=== PATIENT | female | born 1955 | race Caucasian/White ===

== ENCOUNTER → 2016-09-25 | Outpatient (CLI) | payer OTHER ==
[~2016-09-25] MED LIST: AGG PO; ALPR-411 PO; CALC1TAB9 PO; CHOL1TAB42 PO; CYM60 PO; DOXY100C2 PO; FLUO40CA8 PO; GABA-113 PO; HYDR-4330 PO; HYDR-5688 PO; IPRA0.03 INH; LAMO100T16 PO; OMEP40CA PO; PRED10TA PO; PROP80TA2 PO; VNTHFA/IN INH; VTMD PO
== END | disposition home or self-care (01) ==
LOC: C.LAB1850 09:34
PROVIDERS: ATTEND Internal Medicine Rheumatology
DX: E55.9 Vitamin D deficiency, unspecified (principal); M81.0 Age-related osteoporosis without current pathological fracture

== ENCOUNTER → 2016-10-03 | Outpatient (CLI) | payer OTHER ==
[2016-10-03 09:47] LABS: BASO % 0.7 %; BASO ABS # 0.03 K/uL (0-0.2); COMPLETE YES; EOS % 0.2 %; HEMATOCRIT 40.9 % (37-47); LYMPH % 26.2 %; LYMPH ABS # 1.05 K/uL (1.2-3.4); MEAN CELL VOLUME 79.3 fL (80-100); MEAN CORPUSCULAR HGB CONC 32.8 g/dl (32-36); MEAN PLATELET VOLUME 10.1 fL (7.4-10.4); MONO % 9.5 %; NEUT % 63.4 %; PLATELET COUNT 221 K/uL (130-400); RED BLOOD COUNT 5.16 M/uL (4.2-5.4); WHITE BLOOD COUNT 4.01 K/uL (4.8-10.8)
[2016-10-03 10:14] LABS: ESTIMATED AVERAGE GLUCOSE 117 mg/dl; HA1C FLAG Normal (Normal)
[2016-10-03 10:54] LABS: ALT/SGPT 17 U/L (12-78); BLOOD UREA NITROGEN 9 mg/dl (7-18); BUN/CREATININE RATIO 11.2 (10-20); CALCIUM 8.9 mg/dl (8.5-10.1); CARBON DIOXIDE 24 mmol/L (21-32); CHLORIDE 107 mmol/L (98-107); CHOLESTEROL 193 mg/dl (0-200); CREATININE 0.81 mg/dl (0.60-1.20); GLUCOSE 87 mg/dl (70-99); POTASSIUM 4.1 mmol/L (3.5-5.1); SODIUM 142 mmol/L (136-145)
[2016-10-03 10:57] LABS: ALB/GLOB RATIO 1.2 (0.9-2); ALKALINE PHOSPHATASE 94 U/L (45-117); AST/SGOT 19 U/L (15-37); CHOLESTEROL/HDL RATIO 3.9; HDL CHOLESTEROL 49 mg/dl; LDL CHOLESTEROL CALCULATED 123 mg/dl; TRIGLYCERIDES 106 mg/dl (0-150); VERY LOW DENSITY LIPOPROT CALC 21 mg/dl
[2016-10-05 02:13] LABS: VARICELLA ZOS VIR IGG VALUE 1.33 INDEX
== END | disposition home or self-care (01) ==
LOC: C.LAB 08:30
PROVIDERS: ATTEND Nurse Practitioner Family
DX: E78.00 Pure hypercholesterolemia, unspecified (principal); R73.9 Hyperglycemia, unspecified; Z78.9 Other specified health status

== ENCOUNTER → 2016-10-09 | Outpatient (CLI) | payer OTHER ==
--- NOTE | 2016-10-09 15:37 | MAMMOGRAPHY REPORT ---
BILATERAL DIGITAL SCREENING MAMMOGRAM TOMOSYNTHESIS WITH CAD: 10/09/2016 CLINICAL HISTORY: Routine screening. Patient has no complaints. TECHNIQUE: Breast tomosynthesis in addition to standard 2D mammography was performed. Current study was also evaluated with a Computer Aided Detection (CAD) system. COMPARISON: Comparison is made to exams dated: 08/11/2015 mammogram, 07/08/2014 mammogram, 01/12/2013 mammogram, 01/11/2012 mammogram, 01/08/2011 mammogram, and 01/06/2010 mammogram - [facility] enter. BREAST COMPOSITION: The tissue of both breasts is almost entirely fatty. FINDINGS: The parenchymal pattern is unchanged. No developing mass, architectural distortion or clu ster of suspicious microcalcifications is seen. IMPRESSION: ACR BI-RADS CATEGORY 2: BENIGN There is no mammographic evidence of malignancy. A 1 year screening mammogram is recommended. The p atient will receive written notification of the results. Approximately 10% of breast cancers are not detected with mammography. A negative mammographic repor t should not delay biopsy if a clinically suggestive mass is present. Araceli Eng M.D. ay/:10/09/2016 14:44:24 [employer]: Mag Antoine, [facility] letter sent: Normal 1/2 BI-RADS Code: ACR BI-RADS Category 2: Benign
== END | disposition home or self-care (01) ==
LOC: C.MAMM 14:09
PROVIDERS: ATTEND Nurse Practitioner Family
DX: Z12.31 Encounter for screening mammogram for malignant neoplasm of breast (principal)

== ENCOUNTER → 2016-10-18 | Day surgery (SDC) | payer OTHER ==
[2016-10-09 07:54] VITALS: BMI 22.0
[~2016-10-18] VITALS: Ht 167.6 cm; Wt 63.6 kg
[~2016-10-18] MED LIST changes: -DOXY100C2 PO; -FLUO40CA8 PO; -HYDR-4330 PO; -LAMO100T16 PO; +LIDOCAINE HCL 2% 2 ML VIAL (20MG/ML) ONE; +MIDAZOLAM HCL 1 MG/ML 2ML VIAL ONE; +ONDANSETRON INJ 2 MG/ML 2 ML VIAL ONE; -PRED10TA PO; -PROP80TA2 PO; +PROPOFOL IV EMULSION 10 MG/ML 20 ML VIAL IV ONE; +SODIUM CHLORIDE 0.9% 500ML 500 ML IV ONE; -VTMD PO
[2016-10-18 13:44] VITALS: Ht 167.6 cm; Wt 63.6 kg
[2016-10-18 14:01] VITALS: TEMP 36.6
--- NOTE | 2016-10-18 15:03 | Endo History and Physical ---
History & Physical Date of Service: Oct 18, 2016. Chief Complaint: SCREENING COLON Referring Physician: MARCO SMITH History of Present Illness 61 yo CF who presents for screening colonoscopy. Past Medical History Asthma, Anxiety, Reflux, Seizure Disorder, High Cholesterol, Heart Disease, Thrombophlebitis, Depression Past Surgical History Hx Cardiac Surgery: No Hx Internal Defibrillator: No Hx Pacemaker: No Hx Abdominal Surgery: Yes (SULY BSO) Hx of Implantable Prosthesis: No Hx Post-Op Nausea and Vomiting: No Hx Cancer Surgery: No Hx Thoracic Surgery: No Hx Orthopedic: Yes (NECK SURGERY FOR PINCHED NERVE WITH PLATE (FULL ROM)) Hx Urinary Tract Surgery: No Family History None Social History Smoking Status: Never Smoker Hx Substance Use: No Hx Alcohol Use: No Allergies Coded Allergies: No Known Allergies (Verified , 10/18/16) Current Medications Reported Home Medications Medications Dose Route/Sig Max Daily Dose Days Date Category Dose Instructions Ventolin Hfa (Albuterol) 200 Puffs/17141 Mcg Aers 2-4 Puffs INH Q6H PRN 10/09/16 Reported Citracal + D3 Maximum (Calcium Citrate-Vitamin D) 1 Tab Tab 1 Tab PO QAM 10/09/16 Reported Vitamin D (Cholecalciferol) 5,000 Unit Tab 1 Tab PO QAM 10/09/16 Reported Ipratropium [place] (Ipratropium [place] (Nasal)) 0.03 % Spr 2 Sprays INH BID PRN 10/09/16 Reported [place] 5MG/325MG (Acetaminophen/Hydrocodone Bitart) Tab 2 Tablets PO Q4H PRN 10/09/16 Reported PRN PAIN Neurontin (Gabapentin) 300 Mg Cap 300 Mg PO TID 10/09/16 Reported Duloxetine HCl 60 Mg Cap 60 Mg PO QAM 08/16/16 Reported Aggrenox 25-200 mg (Dipyridamole/Aspirin) 1 Cap Cap 1 Cap PO QAM 04/04/16 Reported Xanax (Alprazolam) 0.5 Mg Tab 0.5 Mg PO HS PRN 04/04/16 Reported Prilosec (Omeprazole) 40 Mg Capcr 40 Mg PO QAM 10/03/15 Reported Vital Signs Weight (Kilograms): 63.64 Height (Feet): 5 Height (Inches): 6 Date Time Temp Pulse Resp B/P Pulse Ox O2 Delivery O2 Flow Rate FiO2 10/18/16 14:01 36.6 79 16 117/65 97 Room Air Physical Exam General Appearance: WD/WN, no apparent distress Respiratory/Chest: Auscultation: breath sounds normal Cardiovascular: Heart Auscultation: RRR Abdomen: Bowel Sounds: normal Inspection & Palpation: soft, non-distended, no tenderness, guarding & rebound Assessment and Plan Assessment: 61 yo CF who presents for screening colonoscopy. Plan: Proceed with colonoscopy.
--- NOTE | 2016-10-18 15:30 | Discharge Instructions ---
Endoscopy Patient Instructions Date / Procedure(s) Performed Oct 18, 2016. Colonoscopy Allergy Information Coded Allergies: No Known Allergies (Verified , 10/18/16) Discharge Date / Findings Oct 18, 2016. Diverticulosis Internal hemorrhoids Medication Instructions Stopped Medication(s): NOT TOLD TO STOP ANY MEDICATIONS OK to resume all medications today as prescribed Reported Home Medications Medications Dose Route/Sig Max Daily Dose Days Date Category Dose Instructions Ventolin Hfa (Albuterol) 200 Puffs/87398 Mcg Aers 2-4 Puffs INH Q6H PRN 10/09/16 Reported Citracal + D3 Maximum (Calcium Citrate-Vitamin D) 1 Tab Tab 1 Tab PO QAM 10/09/16 Reported Vitamin D (Cholecalciferol) 5,000 Unit Tab 1 Tab PO QAM 10/09/16 Reported Ipratropium [place] (Ipratropium [place] (Nasal)) 0.03 % Spr 2 Sprays INH BID PRN 10/09/16 Reported [place] 5MG/325MG (Acetaminophen/Hydrocodone Bitart) Tab 2 Tablets PO Q4H PRN 10/09/16 Reported PRN PAIN Neurontin (Gabapentin) 300 Mg Cap 300 Mg PO TID 10/09/16 Reported Duloxetine HCl 60 Mg Cap 60 Mg PO QAM 08/16/16 Reported Aggrenox 25-200 mg (Dipyridamole/Aspirin) 1 Cap Cap 1 Cap PO QAM 04/04/16 Reported Xanax (Alprazolam) 0.5 Mg Tab 0.5 Mg PO HS PRN 04/04/16 Reported Prilosec (Omeprazole) 40 Mg Capcr 40 Mg PO QAM 10/03/15 Reported Provider Instructions Activity Restrictions - No exercising or heavy lifting for 24 hours. - Do not drink alcohol the day of the procedure. - Do not drive a car or operate machinery until the day after the procedure. - Do not make any important decisions or sign important papers in 24 hours after the procedure. Following Day: - Return to full activity which may include returning to work/school. Diet Start your diet with liquids and light foods (jello, soup, juice, toast). Then eat your usual diet if not nauseated. Treatment For Common After Affects For mild abdominal pain, bloating, or excessive gas: - Rest - Eat lightly - Lie on right side Follow-Up Information Follow-up with MARCO SMITH as scheduled Anesthesia Information What You Should Know You have had a procedure that required some medicine to reduce anxiety and discomfort. This treatment is called moderate sedation. After receiving the treatment, you may be sleepy, but you will be able to breathe on your own. The effects of the treatment may last for several hours. Follow these instructions along with Activity/Diet recommendations noted above: * Do NOT do anything where dizziness or clumsiness would be dangerous. * Rest quietly at home today, then you can be up and about tomorrow. * Have a responsible person stay with you the rest of today. * You may have had an I.V. today. If so, you may take the dressing off later today. Recommendations Call your doctor if: * Trouble breathing * Continuous vomiting for more than 24 hours * Temperature above 101 degrees * Severe abdominal pain or bloating * Pain not relieved by pain medicine ordered * There is increased drainage or redness from any incision * A large amount of rectal bleeding greater than 2-3 tablespoons. (If you had a polyp/s removed or have hemorrhoids, a small amount of blood - from the rectum is to be expected.) * You have any unanswered questions or concerns. IN THE EVENT OF A SERIOUS EMERGENCY, GO TO THE NEAREST EMERGENCY ROOM Your discharge instructions were prepared by provider Prosper Craig. Patient Instructions Signature Page Fang Alberts Patient (or Guardian) Signature/Date: I have read and understand the instructions given to me by my caregivers. Caregiver/RN/Doctor Signature/Date: The above-named patient and/or guardian has received patient instructions on this date. + Original Patient Signature Page (only) stays with chart. Please make copy for patient.
--- NOTE | 2016-10-18 15:33 | GI REPORT ---
Procedure Date: 10/18/2016 3:06 PM Procedure: Colonoscopy Indications: Screening for colorectal malignant neoplasm Medicines: Monitored Anesthesia Care Complications: No immediate complications. Estimated Blood Loss: Estimated blood loss: none. Procedure: Pre-Anesthesia Assessment: - Prior to the procedure, a History and Physical was performed, and patient medications and allergies were reviewed. The patient's tolerance of previous anesthesia was also reviewed. The risks and benefits of the procedure and the sedation options and risks were discussed with the patient. All questions were answered, and informed consent was obtained. Prior Anticoagulants: The patient has taken no previous anticoagulant or antiplatelet agents. ASA Grade Assessment: II - A patient with mild systemic disease. After reviewing the risks and benefits, the patient was deemed in satisfactory condition to undergo the procedure. After I obtained informed consent, the scope was passed under direct vision. Throughout the procedure, the patient's blood pressure, pulse, and oxygen saturations were monitored continuously. The scope was introduced through the anus and advanced to the terminal ileum. The scope was introduced through the and advanced to. The colonoscopy was performed without difficulty. The patient tolerated the procedure well. The quality of the bowel preparation was good. The terminal ileum, ileocecal valve, appendiceal orifice, and rectum were photographed. Findings: Multiple small-mouthed diverticula were found in the sigmoid colon. Non-bleeding internal hemorrhoids were found during retroflexion. The hemorrhoids were small. Impression: - Diverticulosis in the sigmoid colon. - Non-bleeding internal hemorrhoids. - No specimens collected. Recommendation: - Resume previous diet. - Continue present medications. - Repeat colonoscopy in 5 years for surveillance. - Return to primary care physician as previously scheduled. Prosper Craig, DO 10/18/2016 3:32:54 PM This report has been signed electronically. Note Initiated On: 10/18/2016 3:06 PM I attest to the content of the Intraoperative Record and orders documented therein, exceptions below
--- NOTE | 2016-10-18 15:48 | Anesthesiology Progress Note ---
Anesthesia Post Op Note Date & Time Oct 18, 2016 at 15:48 Vital Signs Pain Intensity: 0 Vital Signs Past 12 Hours Date Time Temp Pulse Resp B/P Pulse Ox O2 Delivery O2 Flow Rate FiO2 10/18/16 15:43 87 18 103/61 96 Room Air 10/18/16 15:29 80 16 102/58 98 Nasal Cannula 2 10/18/16 14:01 36.6 79 16 117/65 97 Room Air Notes Mental Status: alert / awake / arousable, participated in evaluation Pt Amnestic to Procedure: Yes Nausea / Vomiting: adequately controlled Pain: adequately controlled Airway Patency, RR, SpO2: stable & adequate BP & HR: stable & adequate Hydration State: stable & adequate Anesthetic Complications: no major complications apparent
[2016-10-18 15:51] VITALS: BP 107/62; PULSE 80; O2SAT 80
== END | disposition home or self-care (01) ==
LOC: C.GI 13:30
PROVIDERS: ATTEND Internal Medicine
DX: Z12.11 Encounter for screening for malignant neoplasm of colon (principal); K64.8 Other hemorrhoids; J45.909 Unspecified asthma, uncomplicated; K21.9 Gastro-esophageal reflux disease without esophagitis; E78.00 Pure hypercholesterolemia, unspecified; Z90.710 Acquired absence of both cervix and uterus; K57.30 Diverticulosis of large intestine without perforation or abscess without bleeding; G40.909 Epilepsy, unspecified, not intractable, without status epilepticus

== ENCOUNTER → 2017-02-20 | Outpatient (CLI) | payer OTHER ==
[~2017-02-20] MED LIST changes: -LIDOCAINE HCL 2% 2 ML VIAL (20MG/ML) ONE; -MIDAZOLAM HCL 1 MG/ML 2ML VIAL ONE; -ONDANSETRON INJ 2 MG/ML 2 ML VIAL ONE; -PROPOFOL IV EMULSION 10 MG/ML 20 ML VIAL IV ONE; -SODIUM CHLORIDE 0.9% 500ML 500 ML IV ONE
== END | disposition home or self-care (01) ==
LOC: C.PATHSPEC 16:37
PROVIDERS: ATTEND Dermatology
DX: L82.0 Inflamed seborrheic keratosis (principal); L82.1 Other seborrheic keratosis

== ENCOUNTER → 2017-03-18 | Day surgery (SDC) | payer OTHER ==
[~2017-03-18] VITALS: Ht 167.6 cm; Wt 61.8 kg
[~2017-03-18] MED LIST changes: +LIDOCAINE HCL 2% 2 ML VIAL (20MG/ML) ONE; +PROPOFOL IV EMULSION 10 MG/ML 20 ML VIAL IV ONE; +SODIUM CHLORIDE 0.9% 500ML 500 ML IV ONE
[2017-03-18 09:33] VITALS: Ht 167.6 cm; Wt 61.8 kg
[2017-03-18 09:42] VITALS: TEMP 37
--- NOTE | 2017-03-18 10:12 | Endo History and Physical ---
History & Physical Date of Service: Mar 18, 2017. Chief Complaint: dysphagia,cough,reflux Referring Physician: ECHO Hoyt III History of Present Illness 61 yo CF who presents for EGD secondary to dysphagia, cough and GERD. Past Medical History Asthma, Anxiety, Reflux, Seizure Disorder, High Cholesterol, Heart Disease, Thrombophlebitis, Depression Past Surgical History Hx Cardiac Surgery: No Hx Internal Defibrillator: No Hx Pacemaker: No Hx Abdominal Surgery: Yes (SULY BSO) Hx of Implantable Prosthesis: No Hx Post-Op Nausea and Vomiting: No Hx Cancer Surgery: No Hx Thoracic Surgery: No Hx Orthopedic: Yes (NECK SURGERY FOR PINCHED NERVE WITH PLATE (FULL ROM)) Hx Urinary Tract Surgery: No Family History None Social History Smoking Status: Never Smoker Hx Substance Use: Yes (prescribed) Hx Alcohol Use: No Allergies Coded Allergies: No Known Allergies (Verified , 10/18/16) Current Medications Reported Home Medications Medications Dose Route/Sig Max Daily Dose Days Date Category Dose Instructions Ventolin Hfa (Albuterol) 200 Puffs/32327 Mcg Aers 2-4 Puffs INH Q6H PRN 10/09/16 Reported Citracal + D3 Maximum (Calcium Citrate-Vitamin D) 1 Tab Tab 1 Tab PO QAM 10/09/16 Reported Vitamin D (Cholecalciferol) 5,000 Unit Tab 1 Tab PO QAM 10/09/16 Reported Ipratropium [place] (Ipratropium [place] (Nasal)) 0.03 % Spr 2 Sprays INH BID PRN 10/09/16 Reported [place] 5MG/325MG (Acetaminophen/Hydrocodone Bitart) Tab 2 Tablets PO Q4H PRN 10/09/16 Reported PRN PAIN Neurontin (Gabapentin) 300 Mg Cap 300 Mg PO TID 10/09/16 Reported Duloxetine HCl 60 Mg Cap 60 Mg PO QAM 08/16/16 Reported Aggrenox 25-200 mg (Dipyridamole/Aspirin) 1 Cap Cap 1 Cap PO QAM 04/04/16 Reported Prilosec (Omeprazole) 40 Mg Capcr 40 Mg PO BID 10/03/15 Reported Vital Signs Weight (Kilograms): 61.82 Height (Feet): 5 Height (Inches): 6 Date Time Temp Pulse Resp B/P (MAP) Pulse Ox O2 Delivery O2 Flow Rate FiO2 03/18/17 09:42 37 70 20 120/56 (77) 98 Room Air Physical Exam General Appearance: WD/WN, no apparent distress Respiratory/Chest: Auscultation: breath sounds normal Cardiovascular: Heart Auscultation: RRR Abdomen: Bowel Sounds: normal Inspection & Palpation: soft, non-distended, no tenderness, guarding & rebound Assessment and Plan Assessment: 61 yo CF who presents for EGD secondary to dysphagia, cough and GERD. Plan: Proceed with EGD.
--- NOTE | 2017-03-18 10:30 | Discharge Instructions ---
Endoscopy Patient Instructions Date / Procedure(s) Performed Mar 18, 2017. EGD Allergy Information Coded Allergies: No Known Allergies (Verified , 10/18/16) Discharge Date / Findings Mar 18, 2017. Gastric ulcers Hiatal hernia Reflux esophagitis Esophageal balloon dilation to 18 mm Medication Instructions Stopped Medication(s): took Aggrenox yesterday morning 1) Stop Omeprazole 2) Start Pantoprazole 40mg by mouth twice daily 1/2 hour prior to breakfast and dinner. 3) Start Carafate 1g by mouth four times daily prior to each meal and at bedtime. 4) OK to resume all medications today as prescribed Reported Home Medications Medications Dose Route/Sig Max Daily Dose Days Date Category Dose Instructions Ventolin Hfa (Albuterol) 200 Puffs/43081 Mcg Aers 2-4 Puffs INH Q6H PRN 10/09/16 Reported Citracal + D3 Maximum (Calcium Citrate-Vitamin D) 1 Tab Tab 1 Tab PO QAM 10/09/16 Reported Vitamin D (Cholecalciferol) 5,000 Unit Tab 1 Tab PO QAM 10/09/16 Reported Ipratropium [place] (Ipratropium [place] (Nasal)) 0.03 % Spr 2 Sprays INH BID PRN 10/09/16 Reported [place] 5MG/325MG (Acetaminophen/Hydrocodone Bitart) Tab 2 Tablets PO Q4H PRN 10/09/16 Reported PRN PAIN Neurontin (Gabapentin) 300 Mg Cap 300 Mg PO TID 10/09/16 Reported Duloxetine HCl 60 Mg Cap 60 Mg PO QAM 08/16/16 Reported Aggrenox 25-200 mg (Dipyridamole/Aspirin) 1 Cap Cap 1 Cap PO QAM 04/04/16 Reported Prilosec (Omeprazole) 40 Mg Capcr 40 Mg PO BID 10/03/15 Reported Provider Instructions Activity Restrictions - No exercising or heavy lifting for 24 hours. - Do not drink alcohol the day of the procedure. - Do not drive a car or operate machinery until the day after the procedure. - Do not make any important decisions or sign important papers in 24 hours after the procedure. Following Day: - Return to full activity which may include returning to work/school. Diet Start your diet with liquids and light foods (jello, soup, juice, toast). Then eat your usual diet if not nauseated. Treatment For Common After Affects For mild abdominal pain, bloating, or excessive gas: - Rest - Eat lightly - Lie on right side Follow-Up Information Follow-up with ECHO Hoyt III as scheduled Anesthesia Information What You Should Know You have had a procedure that required some medicine to reduce anxiety and discomfort. This treatment is called moderate sedation. After receiving the treatment, you may be sleepy, but you will be able to breathe on your own. The effects of the treatment may last for several hours. Follow these instructions along with Activity/Diet recommendations noted above: * Do NOT do anything where dizziness or clumsiness would be dangerous. * Rest quietly at home today, then you can be up and about tomorrow. * Have a responsible person stay with you the rest of today. * You may have had an I.V. today. If so, you may take the dressing off later today. Recommendations Call your doctor if: * Trouble breathing * Continuous vomiting for more than 24 hours * Temperature above 101 degrees * Severe abdominal pain or bloating * Pain not relieved by pain medicine ordered * There is increased drainage or redness from any incision * A large amount of rectal bleeding greater than 2-3 tablespoons. (If you had a polyp/s removed or have hemorrhoids, a small amount of blood - from the rectum is to be expected.) * You have any unanswered questions or concerns. IN THE EVENT OF A SERIOUS EMERGENCY, GO TO THE NEAREST EMERGENCY ROOM Your discharge instructions were prepared by provider Prosper Craig. Patient Instructions Signature Page Fang Alberts Patient (or Guardian) Signature/Date: I have read and understand the instructions given to me by my caregivers. Caregiver/RN/Doctor Signature/Date: The above-named patient and/or guardian has received patient instructions on this date. + Original Patient Signature Page (only) stays with chart. Please make copy for patient.
--- NOTE | 2017-03-18 10:38 | GI REPORT ---
Procedure Date: 03/18/2017 10:19 AM Procedure: Upper GI endoscopy Indications: Dysphagia, Gastro-esophageal reflux disease Medicines: Monitored Anesthesia Care Complications: No immediate complications. Estimated Blood Loss: Estimated blood loss: none. Procedure: Pre-Anesthesia Assessment: - Prior to the procedure, a History and Physical was performed, and patient medications and allergies were reviewed. The patient's tolerance of previous anesthesia was also reviewed. The risks and benefits of the procedure and the sedation options and risks were discussed with the patient. All questions were answered, and informed consent was obtained. Prior Anticoagulants: The patient has taken aspirin, last dose was 1 day prior to procedure. ASA Grade Assessment: II - A patient with mild systemic disease. After reviewing the risks and benefits, the patient was deemed in satisfactory condition to undergo the procedure. After obtaining informed consent, the endoscope was passed under direct vision. Throughout the procedure, the patient's blood pressure, pulse, and oxygen saturations were monitored continuously. The Scope was introduced through the mouth, and advanced to the second part of duodenum. The upper GI endoscopy was accomplished without difficulty. The patient tolerated the procedure well. Findings: LA Grade B (one or more mucosal breaks greater than 5 mm, not extending between the tops of two mucosal folds) esophagitis with no bleeding was found. Biopsies were taken with a cold forceps for histology. No endoscopic abnormality was evident in the esophagus to explain the patient's complaint of dysphagia. It was decided, however, to proceed with dilation at the gastroesophageal junction. A TTS dilator was passed through the scope. Dilation with a 15-16.5-18 mm balloon (to a maximum balloon size of 18 mm) dilator was performed. The dilation site was examined and showed no change. A small hiatus hernia was present. Many non-bleeding linear gastric ulcers with no stigmata of bleeding were found in the gastric antrum. The largest lesion was 7 mm in largest dimension. Biopsies were taken with a cold forceps for histology. The examined duodenum was normal. Impression: - LA Grade B reflux esophagitis. Biopsied. - No endoscopic esophageal abnormality to explain patient's dysphagia. Esophagus dilated. Dilated. - Small hiatus hernia. - Non-bleeding gastric ulcers with no stigmata of bleeding. Biopsied. - Normal examined duodenum. Recommendation: - Resume previous diet. - Continue present medications. - Await pathology results. - Return to primary care physician as previously scheduled. Prosper Craig, DO 03/18/2017 10:38:29 AM This report has been signed electronically. Note Initiated On: 03/18/2017 10:19 AM I attest to the content of the Intraoperative Record and orders documented therein, exceptions below
--- NOTE | 2017-03-18 10:55 | Anesthesiology Progress Note ---
Anesthesia Post Op Note Date & Time Mar 18, 2017 at 10:55 Vital Signs Pain Intensity: 0 Vital Signs Past 12 Hours Date Time Temp Pulse Resp B/P (MAP) Pulse Ox O2 Delivery O2 Flow Rate FiO2 03/18/17 10:45 65 20 115/76 (89) 98 Room Air 03/18/17 10:30 72 20 111/65 (80) 97 Room Air 03/18/17 09:42 37 70 20 120/56 (77) 98 Room Air Notes Mental Status: alert / awake / arousable, participated in evaluation Pt Amnestic to Procedure: Yes Nausea / Vomiting: adequately controlled Pain: adequately controlled Airway Patency, RR, SpO2: stable & adequate BP & HR: stable & adequate Hydration State: stable & adequate Anesthetic Complications: no major complications apparent
[2017-03-18 11:00] VITALS: BP 117/72; PULSE 58; O2SAT 100
== END | disposition home or self-care (01) ==
LOC: C.GI 09:15
PROVIDERS: ATTEND Internal Medicine
DX: K25.9 Gastric ulcer, unspecified as acute or chronic, without hemorrhage or perforation (principal); K44.9 Diaphragmatic hernia without obstruction or gangrene; K21.0 Gastro-esophageal reflux disease with esophagitis; E78.00 Pure hypercholesterolemia, unspecified; F32.9 Major depressive disorder, single episode, unspecified; G40.909 Epilepsy, unspecified, not intractable, without status epilepticus; R13.10 Dysphagia, unspecified; Z90.710 Acquired absence of both cervix and uterus; Z90.722 Acquired absence of ovaries, bilateral; Z90.79 Acquired absence of other genital organ(s); Z86.72 Personal history of thrombophlebitis

== ENCOUNTER → 2017-04-24 | Outpatient (CLI) | payer OTHER ==
[~2017-04-24] MED LIST changes: -ALPR-411 PO; -LIDOCAINE HCL 2% 2 ML VIAL (20MG/ML) ONE; -PROPOFOL IV EMULSION 10 MG/ML 20 ML VIAL IV ONE; -SODIUM CHLORIDE 0.9% 500ML 500 ML IV ONE
== END | disposition home or self-care (01) ==
LOC: C.LAB1850 10:00
PROVIDERS: ATTEND Internal Medicine Rheumatology
DX: E55.9 Vitamin D deficiency, unspecified (principal); M81.0 Age-related osteoporosis without current pathological fracture; M80.08XA Age-related osteoporosis with current pathological fracture, vertebra(e), initial encounter for fracture

== ENCOUNTER → 2017-04-25 | Outpatient (CLI) | payer OTHER | END | disposition home or self-care (01) | LOC: C.MAMM 09:54 | PROVIDERS: ATTEND Internal Medicine Rheumatology | DX: E55.9 Vitamin D deficiency, unspecified (principal); M81.0 Age-related osteoporosis without current pathological fracture; M85.89 Other specified disorders of bone density and structure, multiple sites ==

== ENCOUNTER → 2017-05-14 | Day surgery (SDC) | payer OTHER ==
[2017-05-02 09:30] VITALS: Ht 162.6 cm; Wt 61.8 kg
[~2017-05-14] VITALS: Ht 162.6 cm; Wt 61.8 kg
[~2017-05-14] MED LIST changes: +ATROPINE SULFATE 0.1 MG/ML 5ML SYR IV PRN; +EpHEDrine SULFATE INJ 50 MG/ML AMP IV PRN; +LIDOCAINE HCL 2% 2 ML VIAL (20MG/ML) ONE; +MIDAZOLAM HCL 1 MG/ML 2ML VIAL ONE; +ONDANSETRON INJ 2 MG/ML 2 ML VIAL ONE; +PROPOFOL IV EMULSION 10 MG/ML 20 ML VIAL IV ONE; +SODIUM CHLORIDE 0.9% 500ML 500 ML IV ONE
--- NOTE | 2017-05-14 11:47 | Endo History and Physical ---
History & Physical Date of Service: May 14, 2017. Chief Complaint: Esophagitis, Gastric ulcer Referring Physician: Nima Dang History of Present Illness 61 yo CF who presents for EGD secondary to esophagitis and gastric ulcer. Past Medical History Asthma, Anxiety, Reflux, Seizure Disorder, High Cholesterol, Heart Disease, Thrombophlebitis, Depression Past Surgical History Hx Cardiac Surgery: No Hx Internal Defibrillator: No Hx Pacemaker: No Hx Abdominal Surgery: Yes (SULY BSO) Hx Post-Op Nausea and Vomiting: No Hx Cancer Surgery: No Hx Thoracic Surgery: No Hx Orthopedic: Yes (NECK SURGERY FOR PINCHED NERVE WITH PLATE (FULL ROM)) Hx Urinary Tract Surgery: No Family History None Social History Smoking Status: Never Smoker Hx Substance Use: No Hx Alcohol Use: No Allergies Coded Allergies: No Known Allergies (Verified , 05/14/17) Current Medications Reported Home Medications Medications Dose Route/Sig Max Daily Dose Days Date Category Dose Instructions Ventolin Hfa (Albuterol) 200 Puffs/52915 Mcg Aers 2-4 Puffs INH Q6H PRN 10/09/16 Reported Citracal + D3 Maximum (Calcium Citrate-Vitamin D) 1 Tab Tab 1 Tab PO QAM 10/09/16 Reported Vitamin D (Cholecalciferol) 5,000 Unit Tab 1 Tab PO QAM 10/09/16 Reported Ipratropium [place] (Ipratropium [place] (Nasal)) 0.03 % Spr 2 Sprays INH BID PRN 10/09/16 Reported [place] 5MG/325MG (Acetaminophen/Hydrocodone Bitart) Tab 2 Tablets PO Q4H PRN 10/09/16 Reported PRN PAIN Neurontin (Gabapentin) 300 Mg Cap 300 Mg PO TID 10/09/16 Reported Duloxetine HCl 60 Mg Cap 60 Mg PO QAM 08/16/16 Reported Aggrenox 25-200 mg (Dipyridamole/Aspirin) 1 Cap Cap 1 Cap PO QAM 04/04/16 Reported Prilosec (Omeprazole) 40 Mg Capcr 40 Mg PO BID 10/03/15 Reported Vital Signs Weight (Kilograms): 61.82 Height (Feet): 5 Height (Inches): 4 Date Time Temp Pulse Resp B/P (MAP) Pulse Ox O2 Delivery O2 Flow Rate FiO2 05/14/17 11:01 36.8 72 20 110/67 (81) 97 Room Air Physical Exam General Appearance: WD/WN, no apparent distress Respiratory/Chest: Auscultation: breath sounds normal Cardiovascular: Heart Auscultation: RRR Abdomen: Bowel Sounds: normal Inspection & Palpation: soft, non-distended, no tenderness, guarding & rebound Assessment and Plan Assessment: 61 yo CF who presents for EGD secondary to esophagitis and gastric ulcer. Plan: Proceed with EGD
--- NOTE | 2017-05-14 12:20 | Discharge Instructions ---
Endoscopy Patient Instructions Date / Procedure(s) Performed May 14, 2017. EGD Allergy Information Coded Allergies: No Known Allergies (Verified , 05/14/17) Discharge Date / Findings May 14, 2017. Distal esophageal biopsies Hiatal hernia Medication Instructions Stopped Medication(s): Aggrenox last taken on 05-09-17 OK to resume all medications today as prescribed Reported Home Medications Medications Dose Route/Sig Max Daily Dose Days Date Category Dose Instructions Ventolin Hfa (Albuterol) 200 Puffs/64521 Mcg Aers 2-4 Puffs INH Q6H PRN 10/09/16 Reported Citracal + D3 Maximum (Calcium Citrate-Vitamin D) 1 Tab Tab 1 Tab PO QAM 10/09/16 Reported Vitamin D (Cholecalciferol) 5,000 Unit Tab 1 Tab PO QAM 10/09/16 Reported Ipratropium [place] (Ipratropium [place] (Nasal)) 0.03 % Spr 2 Sprays INH BID PRN 10/09/16 Reported [place] 5MG/325MG (Acetaminophen/Hydrocodone Bitart) Tab 2 Tablets PO Q4H PRN 10/09/16 Reported PRN PAIN Neurontin (Gabapentin) 300 Mg Cap 300 Mg PO TID 10/09/16 Reported Duloxetine HCl 60 Mg Cap 60 Mg PO QAM 08/16/16 Reported Aggrenox 25-200 mg (Dipyridamole/Aspirin) 1 Cap Cap 1 Cap PO QAM 04/04/16 Reported Prilosec (Omeprazole) 40 Mg Capcr 40 Mg PO BID 10/03/15 Reported Provider Instructions Activity Restrictions - No exercising or heavy lifting for 24 hours. - Do not drink alcohol the day of the procedure. - Do not drive a car or operate machinery until the day after the procedure. - Do not make any important decisions or sign important papers in 24 hours after the procedure. Following Day: - Return to full activity which may include returning to work/school. Diet Start your diet with liquids and light foods (jello, soup, juice, toast). Then eat your usual diet if not nauseated. Treatment For Common After Affects For mild abdominal pain, bloating, or excessive gas: - Rest - Eat lightly - Lie on right side Follow-Up Information Follow-up with Nima Dang as scheduled Anesthesia Information What You Should Know You have had a procedure that required some medicine to reduce anxiety and discomfort. This treatment is called moderate sedation. After receiving the treatment, you may be sleepy, but you will be able to breathe on your own. The effects of the treatment may last for several hours. Follow these instructions along with Activity/Diet recommendations noted above: * Do NOT do anything where dizziness or clumsiness would be dangerous. * Rest quietly at home today, then you can be up and about tomorrow. * Have a responsible person stay with you the rest of today. * You may have had an I.V. today. If so, you may take the dressing off later today. Recommendations Call your doctor if: * Trouble breathing * Continuous vomiting for more than 24 hours * Temperature above 101 degrees * Severe abdominal pain or bloating * Pain not relieved by pain medicine ordered * There is increased drainage or redness from any incision * A large amount of rectal bleeding greater than 2-3 tablespoons. (If you had a polyp/s removed or have hemorrhoids, a small amount of blood - from the rectum is to be expected.) * You have any unanswered questions or concerns. IN THE EVENT OF A SERIOUS EMERGENCY, GO TO THE NEAREST EMERGENCY ROOM Your discharge instructions were prepared by provider Prosper Craig. Patient Instructions Signature Page Fang Alberts Patient (or Guardian) Signature/Date: I have read and understand the instructions given to me by my caregivers. Caregiver/RN/Doctor Signature/Date: The above-named patient and/or guardian has received patient instructions on this date. + Original Patient Signature Page (only) stays with chart. Please make copy for patient.
--- NOTE | 2017-05-14 12:22 | Anesthesiology Progress Note ---
Anesthesia Post Op Note Date & Time May 14, 2017 at 12:22 Vital Signs Pain Intensity: 0 Vital Signs Past 12 Hours Date Time Temp Pulse Resp B/P (MAP) Pulse Ox O2 Delivery O2 Flow Rate FiO2 05/14/17 12:06 74 20 114/63 (80) 98 Room Air 05/14/17 11:01 36.8 72 20 110/67 (81) 97 Room Air Notes Mental Status: alert / awake / arousable, participated in evaluation Pt Amnestic to Procedure: Yes Nausea / Vomiting: adequately controlled Pain: adequately controlled Airway Patency, RR, SpO2: stable & adequate BP & HR: stable & adequate Hydration State: stable & adequate Anesthetic Complications: no major complications apparent
--- NOTE | 2017-05-14 12:29 | GI REPORT ---
Procedure Date: 05/14/2017 11:00 AM Procedure: Upper GI endoscopy Indications: Follow-up of acute gastric ulcer Medicines: Monitored Anesthesia Care Complications: No immediate complications. Estimated Blood Loss: Estimated blood loss: none. Procedure: Pre-Anesthesia Assessment: - Prior to the procedure, a History and Physical was performed, and patient medications and allergies were reviewed. The patient's tolerance of previous anesthesia was also reviewed. The risks and benefits of the procedure and the sedation options and risks were discussed with the patient. All questions were answered, and informed consent was obtained. Prior Anticoagulants: The patient has taken no previous anticoagulant or antiplatelet agents. ASA Grade Assessment: III - A patient with severe systemic disease. After reviewing the risks and benefits, the patient was deemed in satisfactory condition to undergo the procedure. After obtaining informed consent, the endoscope was passed under direct vision. Throughout the procedure, the patient's blood pressure, pulse, and oxygen saturations were monitored continuously. The On-site loaner was introduced through the mouth, and advanced to the second part of duodenum. The upper GI endoscopy was accomplished without difficulty. The patient tolerated the procedure well. Findings: The examined esophagus was normal. This was biopsied with a cold forceps for histology. A small hiatus hernia was present. The examined duodenum was normal. Impression: - Normal esophagus. Biopsied. - Small hiatus hernia. - Normal examined duodenum. Recommendation: - Resume previous diet. - Continue present medications. - Await pathology results. - Return to primary care physician as previously scheduled. Prosper Craig DO 05/14/2017 12:29:20 PM This report has been signed electronically. Note Initiated On: 05/14/2017 11:00 AM I attest to the content of the Intraoperative Record and orders documented therein, exceptions below
[2017-05-14 12:40] VITALS: BP 127/80; PULSE 63; O2SAT 98
== END | disposition home or self-care (01) ==
LOC: C.GI 10:44
PROVIDERS: ATTEND Internal Medicine
DX: K44.9 Diaphragmatic hernia without obstruction or gangrene (principal); E78.00 Pure hypercholesterolemia, unspecified; K21.9 Gastro-esophageal reflux disease without esophagitis; J45.909 Unspecified asthma, uncomplicated; G40.909 Epilepsy, unspecified, not intractable, without status epilepticus; F41.9 Anxiety disorder, unspecified; F32.9 Major depressive disorder, single episode, unspecified; Z79.899 Other long term (current) drug therapy; Z87.11 Personal history of peptic ulcer disease

== ENCOUNTER → 2017-05-29 | Outpatient (CLI) | payer OTHER ==
[~2017-05-29] MED LIST changes: -ATROPINE SULFATE 0.1 MG/ML 5ML SYR IV PRN; -EpHEDrine SULFATE INJ 50 MG/ML AMP IV PRN; -LIDOCAINE HCL 2% 2 ML VIAL (20MG/ML) ONE; -MIDAZOLAM HCL 1 MG/ML 2ML VIAL ONE; -ONDANSETRON INJ 2 MG/ML 2 ML VIAL ONE; -PROPOFOL IV EMULSION 10 MG/ML 20 ML VIAL IV ONE; -SODIUM CHLORIDE 0.9% 500ML 500 ML IV ONE
--- NOTE | 2017-05-29 14:27 | DIAGNOSTIC IMAGING REPORT ---
L-SPINE MIN 4 VIEWS ROUTINE HISTORY: Compression fracture pain COMPARISON: 01/17/2016 FINDINGS: Evidence for osteoporotic compression deformities of L2 and L3 as well as T12. Evidence for interval vertebroplasty of T12. Moderate rotational levoscoliosis. No subluxation. Moderate degenerative disc change throughout unaltered from the prior study. Slight concave deformity superior endplate L4 unchanged from the prior study IMPRESSION: Unchanging compression deformities of L2, L3, L4, and T12. Interval vertebroplasty at T12. The above report was generated using voice recognition software. It may contain grammatical, syntax or spelling errors. Electronically signed by: Torsten Sheth M.D. 05/29/2017 2:26 PM Dictated Date/Time: 05/29/2017 2:24 PM
== END | disposition home or self-care (01) ==
LOC: C.RAD1850 14:06
PROVIDERS: ATTEND Internal Medicine Rheumatology
DX: M54.5 Low back pain (principal); M81.0 Age-related osteoporosis without current pathological fracture; E55.9 Vitamin D deficiency, unspecified; M43.8X6 Other specified deforming dorsopathies, lumbar region; M43.8X4 Other specified deforming dorsopathies, thoracic region

== ENCOUNTER → 2017-08-28 | Outpatient (CLI) | payer OTHER | END | disposition home or self-care (01) | LOC: C.PATHSPEC 17:27 | PROVIDERS: ATTEND Dermatology | DX: L82.1 Other seborrheic keratosis (principal) ==

== ENCOUNTER → 2017-09-27 | Outpatient (CLI) | payer OTHER ==
[2017-09-27 10:08] LABS: BASO % 0.5 %; BASO ABS # 0.02 K/uL (0-0.2); HEMATOCRIT 39.4 % (37-47); IG# 0.01 K/uL (0.00-0.02); LYMPH % 28.2 %; LYMPH ABS # 1.11 K/uL (1.2-3.4); MEAN CELL VOLUME 81.4 fL (80-100); MEAN CORPUSCULAR HEMOGLOBIN 26.9 pg (25-34); MONO % 8.6 %; MONO ABS # 0.34 K/uL (0.11-0.59); NEUT % 62.4 %; NEUT ABS # 2.46 K/uL (1.4-6.5); PLATELET COUNT 246 K/uL (130-400); RED CELL DISTRIBUTION WIDTH CV 14.4 % (11.5-14.5); RED CELL DISTRIBUTION WIDTH SD 42.5 fL (36.4-46.3); WHITE BLOOD COUNT 3.94 K/uL (4.8-10.8)
[2017-09-27 10:30] LABS: HEMOGLOBIN A1C 5.5 % (4.5-5.6)
[2017-09-27 10:33] LABS: ALBUMIN 3.9 gm/dl (3.4-5.0); ALT/SGPT 19 U/L (12-78); BLOOD UREA NITROGEN 13 mg/dl (7-18); CALCIUM 9.2 mg/dl (8.5-10.1); CARBON DIOXIDE 29 mmol/L (21-32); CHOLESTEROL 201 mg/dl (0-200); CREATININE 0.79 mg/dl (0.60-1.20); GLUCOSE 89 mg/dl (70-99); POTASSIUM 3.8 mmol/L (3.5-5.1); SODIUM 139 mmol/L (136-145)
[2017-09-27 10:36] LABS: ALKALINE PHOSPHATASE 99 U/L (45-117); AST/SGOT 22 U/L (15-37); LDL CHOLESTEROL CALCULATED 124 mg/dl; TOTAL PROTEIN 7.2 gm/dl (6.4-8.2)
== END | disposition home or self-care (01) ==
LOC: C.LAB1850 09:21
PROVIDERS: ATTEND Nurse Practitioner Family
DX: E55.9 Vitamin D deficiency, unspecified (principal); E78.00 Pure hypercholesterolemia, unspecified; M81.0 Age-related osteoporosis without current pathological fracture; M79.7 Fibromyalgia; R73.9 Hyperglycemia, unspecified; E61.8 Deficiency of other specified nutrient elements; M48.061 Spinal stenosis, lumbar region without neurogenic claudication

== ENCOUNTER → 2017-10-10 | Outpatient (CLI) | payer OTHER ==
--- NOTE | 2017-10-10 14:35 | MAMMOGRAPHY REPORT ---
BILATERAL DIGITAL SCREENING MAMMOGRAM TOMOSYNTHESIS WITH CAD: 10/10/2017 CLINICAL HISTORY: Routine screening. Patient has no complaints. TECHNIQUE: Breast tomosynthesis in addition to standard 2D mammography was performed. Current study was also evaluated with a Computer Aided Detection (CAD) system. COMPARISON: Comparison is made to exams dated: 10/09/2016 mammogram, 08/11/2015 mammogram, 07/08/2014 mammogram, 01/12/2013 mammogram, 01/11/2012 mammogram, and 01/08/2011 mammogram - [facility]. BREAST COMPOSITION: The tissue of both breasts is almost entirely fatty. FINDINGS: No suspicious masses, calcifications, or areas of architectural distortion are noted in ei ther breast. There has been no significant interval change compared to prior exams. IMPRESSION: ACR BI-RADS CATEGORY 1: NEGATIVE There is no mammographic evidence of malignancy. A 1 year screening mammogram is recommended. The pa tient will receive written notification of the results. Approximately 10% of breast cancers are not detected with mammography. A negative mammographic report should not delay biopsy if a clinically suggestive mass is present. Maxine Lara M.D. /:10/10/2017 13:31:08 [employer] Supervisor: Mag Antoine, [facility] letter sent: Normal 1/2 BI-RADS Code: ACR BI-RADS Category 1: Negative
== END | disposition home or self-care (01) ==
LOC: C.MAMM 12:51
PROVIDERS: ATTEND Nurse Practitioner Family
DX: Z12.31 Encounter for screening mammogram for malignant neoplasm of breast (principal)

== ENCOUNTER → 2017-10-29 | Outpatient (CLI) | payer OTHER ==
[2017-10-29 12:00] LABS: BASO % 0.2 %; BASO ABS # 0.02 K/uL (0-0.2); EOS % 0.3 %; EOS ABS # 0.04 K/uL (0-0.5); HEMATOCRIT 38.9 % (37-47); HEMOGLOBIN 12.6 g/dL (12.0-16.0); IG# 0.09 K/uL (0.00-0.02); LYMPH % 26.3 %; LYMPH ABS # 3.26 K/uL (1.2-3.4); MEAN CORPUSCULAR HEMOGLOBIN 25.9 pg (25-34); MEAN CORPUSCULAR HGB CONC 32.4 g/dl (32-36); MEAN PLATELET VOLUME 9.1 fL (7.4-10.4); MONO % 6.8 %; MONO ABS # 0.84 K/uL (0.11-0.59); NEUT % 65.7 %; NEUT ABS # 8.16 K/uL (1.4-6.5); PLATELET COUNT 398 K/uL (130-400); RED CELL DISTRIBUTION WIDTH CV 14.5 % (11.5-14.5); RED CELL DISTRIBUTION WIDTH SD 41.7 fL (36.4-46.3); WHITE BLOOD COUNT 12.41 K/uL (4.8-10.8)
== END | disposition home or self-care (01) ==
LOC: C.LAB1850 10:32
PROVIDERS: ATTEND Nurse Practitioner Family
DX: E55.9 Vitamin D deficiency, unspecified (principal); M54.5 Low back pain; M81.0 Age-related osteoporosis without current pathological fracture; J20.9 Acute bronchitis, unspecified

== ENCOUNTER → 2017-12-24 | Outpatient (CLI) | payer OTHER ==
--- NOTE | 2017-12-24 15:45 | DIAGNOSTIC IMAGING REPORT ---
R FOOT MIN 3 VIEWS ROUTINE HISTORY: 62 years-old Female M79.671 Foot pain, rightAttention to the lateral aspect of the m acute right foot pain, most pronounced laterally COMPARISON: None available TECHNIQUE: 3 views of the right foot FINDINGS: Severe joint space narrowing with marginal spurring and subchondral cystic change/sclerosis involves the first MTP joint with mild adjacent soft tissue prominence. The bones appear mildly demineralized. Mild degenerative changes of the interphalangeal joints. Type II accessory navicular. No acute fracture or dislocation. Mild soft tissue prominence is also seen adjacent to the fifth MTP joint. Small enthesophytes about the plantar and Achilles calcaneus. No opaque foreign body. IMPRESSION: 1. No acute fracture or dislocation. 2. Degenerative changes as above with mild forefoot soft tissue swelling, notably adjacent to the first and fifth MTP joints. The above report was generated using voice recognition software. It may contain grammatical, syntax or spelling errors. Electronically signed by: Rob Dickson M.D. 12/24/2017 3:43 PM Dictated Date/Time: 12/24/2017 3:42 PM
--- NOTE | 2017-12-24 15:47 | DIAGNOSTIC IMAGING REPORT ---
L HAND MIN 3 VIEWS ROUTINE CLINICAL HISTORY: 62 years-old Female presenting with left hand pain, attention on the distal thumb. TECHNIQUE: Frontal, oblique, and lateral views of the left hand were obtained. COMPARISON: None. FINDINGS: Osteopenia may be present. No acute fracture or malalignment. No advanced degenerative change. No radiographic soft tissue abnormality. IMPRESSION: No acute osseous injury. Electronically signed by: Kishore St M.D. 12/24/2017 3:45 PM Dictated Date/Time: 12/24/2017 3:44 PM
[2017-12-24 16:57] LABS: CALCIUM 9.2 mg/dl (8.5-10.1)
[2017-12-24 17:02] LABS: URIC ACID 2.5 mg/dl (2.6-7.2)
== END | disposition home or self-care (01) ==
LOC: C.RAD1850 15:21
PROVIDERS: ATTEND Internal Medicine Rheumatology
DX: M79.671 Pain in right foot (principal); E55.9 Vitamin D deficiency, unspecified; M54.16 Radiculopathy, lumbar region; M81.0 Age-related osteoporosis without current pathological fracture

== ENCOUNTER → 2018-04-08 | Outpatient (CLI) | payer OTHER ==
[~2018-04-08] MED LIST changes: -CYM60 PO; +DULO60CA44 PO; +HYDR-4079 PO; -HYDR-5688 PO; +MELA3TAB12 PO; +NXM/40 PO; -OMEP40CA PO; +OXYC-57 PO; +TERI600S SQ
[2018-04-08 09:58] LABS: HEMOGLOBIN A1C 5.5 % (4.5-5.6)
[2018-04-08 10:08] LABS: ALBUMIN 3.5 gm/dl (3.4-5.0); ALKALINE PHOSPHATASE 133 U/L (45-117); ALT/SGPT 13 U/L (12-78); AST/SGOT 16 U/L (15-37); BLOOD UREA NITROGEN 12 mg/dl (7-18); CALCIUM 9.4 mg/dl (8.5-10.1); CARBON DIOXIDE 27 mmol/L (21-32); CHOLESTEROL 172 mg/dl (0-200); CREATININE 0.73 mg/dl (0.60-1.20); GLUCOSE 83 mg/dl (70-99); LDL CHOLESTEROL CALCULATED 106 mg/dl; POTASSIUM 3.6 mmol/L (3.5-5.1); SODIUM 138 mmol/L (136-145)
== END | disposition home or self-care (01) ==
LOC: C.LAB1850 08:24
PROVIDERS: ATTEND Nurse Practitioner Family
DX: E78.00 Pure hypercholesterolemia, unspecified (principal); R73.9 Hyperglycemia, unspecified; M48.061 Spinal stenosis, lumbar region without neurogenic claudication; M79.7 Fibromyalgia

== ENCOUNTER → 2018-04-21 | Outpatient (CLI) | payer OTHER ==
[~2018-04-21] MED LIST changes: +CYCL10TA6 PO
--- NOTE | 2018-04-21 11:47 | DIAGNOSTIC IMAGING REPORT ---
R FOOT MIN 3 VIEWS ROUTINE CLINICAL HISTORY: M79.671 pain COMPARISON: None. DISCUSSION: Degenerative change first metatarsophalangeal joint. Very small heel spur. Bony structures otherwise are unremarkable. There is no evidence for soft tissue swelling. IMPRESSION: Severe degenerative change first metatarsophalangeal joint. Small heel spur. The above report was generated using voice recognition software. It may contain grammatical, syntax or spelling errors. Electronically signed by: Torsten Sheth M.D. 04/21/2018 11:46 AM Dictated Date/Time: 04/21/2018 11:43 AM
== END | disposition home or self-care (01) ==
LOC: C.RAD1850 11:30
PROVIDERS: ATTEND Family Medicine
DX: M77.31 Calcaneal spur, right foot (principal); M79.671 Pain in right foot

== ENCOUNTER 2018-04-27 20:10 | Emergency (ER) | payer OTHER ==
[~2018-04-27] VITALS: Ht 167.6 cm; Wt 64.3 kg
[~2018-04-27 20:10] MED LIST changes: -CYCL10TA6 PO; -HYDR-4079 PO
[2018-04-27 20:16] VITALS: TEMP 36.8; Ht 167.6 cm; Wt 64.3 kg
[2018-04-27] MEDS ORDERED: IBUPROFEN 600 MG TAB PO STA (20:27)
[2018-04-27] MEDS ORDERED: CYCLOBENZAPRINE HCL 10 MG TAB PO STA (20:27)
[2018-04-27] MEDS ORDERED: OXYCODONE/ACETAMINOPHEN 5-325 TAB PO STA (20:27)
[2018-04-27] MEDS ORDERED: LIDOCAINE 1% BUFFERED INJ 20 ML VIAL INFIL ONE (20:30)
--- NOTE | 2018-04-27 20:31 | EMERGENCY ROOM VISIT NOTE ---
History First contact with patient: 20:18 Chief Complaint: PUNCTURE WOUND Stated Complaint: FELL, BOLT PUNCTURED RIGHT LEG Nursing Triage Summary: Patient's was working a bench, patient walked by and a screw punctured right bautista. Patient also had back surgery on March 20 and now with increasing back pain radiating into left hip and leg. History of Present Illness The patient is a 62 year old female who presents to the Emergency Room with complaints of a laceration to her right leg that she sustained when she accidentally tripped and fell. The patient's was building a wooden bench. She tripped on the bench, cut her right lower leg on a screw that was exposed and fell onto her right side. She is now feeling intense pain in her low back down her left leg. She denies any weakness, numbness or tingling. The patient just had back surgery on her lumbar spine on March 20. She has not taken anything for pain. Her tetanus shot is up-to-date. She denies any other injuries. Review of Systems 6 system review negative. Please see pertinent positives in the history of present illness section. Past Medical/Surgical History Medical Problems: (1) Acute Venous Embolism & Thrombosis Deep Vessels Distal Le (2) Asthma, Unspecified (3) Diverticulosis Colon (W/O Ment Of Hemorrhage) (4) Esophageal Reflux (5) Lumbar Disc Displacement (6) Lumbar stenosis (7) Sciatica Family History Cancer FH: kidney cancer Gallbladder disease Heart disease High blood pressure Seizures Social History Smoking Status: Never Smoker Alcohol Use: none Drug Use: none Marital Status: Housing Status: lives with family Occupation Status: unemployed Current/Historical Medications Scheduled Aspirin-Dipyridamole 25MG/200MG (Aggrenox 200MG/25MG), 1 CAP PO QAM Calcium Citrate-Vitamin D (Citracal + D3 Maximum), 2 TAB PO QAM Cholecalciferol (Vitamin D), 1 TAB PO QAM Cyclobenzaprine Hcl (Flexeril), 10 MG PO TID Duloxetine Hcl (Cymbalta), 60 MG PO QAM Esomeprazole Magnesium (Nexium), 40 MG PO QAM Gabapentin (Neurontin), 300 MG PO TID Melatonin-Pyridoxine (Melatonin), 10 MG PO HS Teriparatide (Recombinant) (Forteo), 20 MCG SQ QPM Scheduled PRN Albuterol Hfa (Ventolin Hfa), 2-4 PUFFS INH Q6H PRN for SOB/Wheezing Ipratropium [place] (Nasal) (Ipratropium [place]), 2 SPRAYS INH BID PRN for PRN Oxycodone/Acetaminophen 5MG/325MG (Percocet 5MG/325MG), 1 TABLET PO Q4H PRN for Pain Physical Exam Vital Signs Date Time Temp Pulse Resp B/P (MAP) Pulse Ox O2 Delivery O2 Flow Rate FiO2 04/27/18 22:29 68 16 132/49 97 04/27/18 20:16 36.8 108 18 138/85 95 Room Air Physical Exam VITALS: Vitals are noted on the nurse's note and reviewed by myself. Vital signs stable. GENERAL: 62-year-old female, in moderate discomfort,, SKIN: 3 cm laceration noted to the anterior aspect of the right bautista. Mild oozing of blood. No deep structures such as bone noted. The wound is gaping. No foreign material. Appears clean. HEAD: Normocephalic atraumatic. EYES: Conjunctivae without injection, sclerae without icterus. Extraocular movements intact. MUSCULOSKELETAL: Tenderness to palpation over the lower lumbar spinous processes and left SI joint. Sensation in the lower extremities is intact. Distal pulses +2 bilaterally. Strength 5/5 throughout. NEURO: Patient was alert and oriented to person place and time. Normal sensation to touch. No focal neurological deficits. Medical Decision & Procedures ER Provider Diagnostic Interpretation: CT of the lumbar spine without contrast IMPRESSION: 1. No acute lumbar spine fracture or subluxation. Old mild compression deformities of L2-L5. 2. Status post L2-L5 laminectomy. 3. Bladder distention, partially imaged on this exam. 4. Mild levoscoliosis of the lumbar spine. Electronically signed by: Baron Parks M.D. 04/27/2018 9:24 PM Dictated Date/Time: 04/27/2018 9:13 PM Medications Administered Medications (Trade) Dose Ordered Sig/Neo Route Start Time Stop Time Status Last Admin Dose Admin Oxycodone/ Acetaminophen (Percocet 5-325mg Tab) 1 tab NOW STAT PO 04/27/18 20:27 04/27/18 20:29 DC 04/27/18 20:40 1 TAB Ibuprofen (Motrin Tab) 600 mg ONE STAT PO 04/27/18 20:27 04/27/18 20:29 DC 04/27/18 20:40 600 MG Cyclobenzaprine HCl (Flexeril Tab) 10 mg NOW STAT PO 04/27/18 20:27 04/27/18 20:29 DC 04/27/18 20:40 10 MG Oxycodone/ Acetaminophen (Percocet 5/ 325MG Home Pack) 1 homepack UD ONCE PO 04/27/18 22:15 04/27/18 22:16 DC 04/27/18 22:25 1 HOMEPACK Cyclobenzaprine HCl (FLEXERIL 10MG Home Pack) 1 homepack UD ONCE PO 04/27/18 22:30 04/27/18 22:31 DC 04/27/18 22:25 1 HOMEPACK Procedure Verbal consent was obtained to perform the procedure. Using sterile technique the wound was cleaned with Betadine. The area was sterilely draped. 4 ml of 1 % buffered lidocaine was used to anesthetize the laceration. Once the patient was anesthetized, the wound was copiously irrigated under pressure with sterile saline. The wound was explored and there were no deep structures injured such as tendons, bone, or significant blood vessels. The laceration was repaired using 7 simple interrupted 4-0 nylon sutures with the wound edges being well approximated. The patient tolerated the procedure well. Hemostasis was achieved. The area was cleaned with sterile saline and dressed with bacitracin ointment and bandage. ED Course The patient was seen and examined She was medicated with Percocet, ibuprofen and Flexeril Imaging was performed and reviewed The laceration was repaired. Please see my procedure note. Upon reevaluation, the patient was feeling better. We discussed the results of her imaging. She voiced understanding. She was comfortable being discharged home. The patient was also seen and examined by my supervising physician who is in agreement with my plan The patient was given a home pack of Percocet Discharge instructions were reviewed, and she was discharged in good condition Medical Decision Differential diagnosis: Acute on chronic back pain, loosening of hardware, fracture, strain, laceration This patient is a pleasant 62-year-old female that presents to the emergency department complaining of a mechanical fall, laceration and back pain prior to arrival. The patient just had back surgery about a month ago. On exam, she was neurovascularly intact. She was uncomfortable in appearance. She sustained an approximately 3 cm laceration to the anterior portion of her right leg. This was repaired. CT of the lumbar spine was performed. No acute findings were noted. I believe the patient is stable to be discharged home with close follow-up from her orthopedic doctor. She will be given a short course of narcotics and muscle relaxants. She was comfortable with this plan. She was cautioned on symptoms for which to return to the emergency department. This chart was completed in part utilizing [employer] Speech Voice Recognition software. Attempts were made to minimize the grammatical errors, random word insertions, pronoun errors and incomplete sentences. Any formal questions or concerns about the content, text or information contained within the body of this dictation should be directly addressed to the provider for clarification. Medication Reconcilliation Current Medication List: was personally reviewed by me Blood Pressure Screening Patient's blood pressure: Elevated blood pressure Blood pressure disposition: Elevated BP felt to be situational Impression Primary Impression: Fall Additional Impression: Laceration Departure Information Dispostion Home / Self-Care Condition GOOD Prescriptions Cyclobenzaprine Hcl (FLEXERIL) 10 Mg Tab 10 MG PO TID for Muscle Spasms, #20 TAB Prov: Radha Norwood PA-C 04/27/18 Referrals Nima Dang III, CRNP (PCP) Patient Instructions My [facility] Additional Instructions You have been evaluated in the emergency department after a fall. He sustained a laceration to your leg. This was repaired with 7 stitches. Imaging of your back did not show any acute problems. Please continue Percocet as prescribed for pain Flexeril every 8 hours as needed for muscle spasm/pain. Please also do not drink alcohol or drive while taking this medication. If the pain persists, please follow-up with your orthopedic doctor Keep wound clean. It is okay to gently wash the area with soapy water. Do not submerse it in water for long periods of time such as swimming, going in hot tubs or taking baths until the sutures come out. Do not allow any crusting or dried blood to accumulate on sutures. If this occurs, use a 1:1 solution of hydrogen peroxide/water on a Q-tip to clean the wound. Use an antibiotic ointment for 3-4 days, then let wound dry. Suture removal in 14 days. Return sooner for any signs of infection (increasing redness, swelling, drainage). Ice and elevate for swelling and pain It was a pleasure participating in your care today Problem Qualifiers
--- NOTE | 2018-04-27 21:26 | DIAGNOSTIC IMAGING REPORT ---
LUMBAR SPINE CT WITHOUT CONTRAST CLINICAL HISTORY: Fall. Low back pain radiating into left lower extremity. COMPARISON STUDY: Lumbar spine CT February 07, 2018 and lumbar spine radiographs March 05, 2018. TECHNIQUE: Axial images of the lumbar spine were obtained without IV contrast. Sagittal and coronal reconstructions were viewed. FINDINGS: For purposes of numbering on this exam, the L5-S1 disc space is assigned to axial image 220 of 273. T11 vertebral augmentation is noted on the director of scout work images. Mild levoscoliosis of the lumbar spine is noted. Mild loss of height of the L2, L3, L4 and L5 vertebral bodies is unchanged since CT of February 07, 2018. There is no acute lumbar spine fracture. Patient is status post L2-L5 laminectomy with posterior lateral fusion with bone graft material. Central canal and neural foramen are suboptimally assessed by CT. Sacroiliac joints are intact. No severe central canal stenosis is noted. Multilevel neural foraminal stenosis is most pronounced at the left L4-L5 neural foramen. IMPRESSION: 1. No acute lumbar spine fracture or subluxation. Old mild compression deformities of L2-L5. 2. Status post L2-L5 laminectomy. 3. Bladder distention, partially imaged on this exam. 4. Mild levoscoliosis of the lumbar spine. Electronically signed by: Baron Parks M.D. 04/27/2018 9:24 PM Dictated Date/Time: 04/27/2018 9:13 PM
[2018-04-27] MEDS ORDERED: CYCL10TA6 PO (22:11)
--- NOTE | 2018-04-27 22:14 | EMERGENCY ROOM VISIT NOTE ---
ED Visit Note First contact with patient: 20:18 Staff note: I have reviewed the Patients chart and have discussed this case with my PA. I generally agree with the ED note and findings.
[2018-04-27] MEDS ORDERED: PERCOCET HOME PACK PO ONE (22:15)
[2018-04-27 22:29] VITALS: BP 132/49; PULSE 68; O2SAT 97
[2018-04-27] MEDS ORDERED: FLEXERIL HOME PACK 10 MG VIAL PO ONE (22:30)
== END 2018-04-27 22:32 | disposition home or self-care (01) ==
LOC: C.EDB 20:12 → C.EDD 22:32
DX: S81.811A Laceration without foreign body, right lower leg, initial encounter (principal); W01.118A Fall on same level from slipping, tripping and stumbling with subsequent striking against other sharp object, initial encounter; Y93.89 Activity, other specified; Z98.890 Other specified postprocedural states; Z86.718 Personal history of other venous thrombosis and embolism; J45.909 Unspecified asthma, uncomplicated; K21.9 Gastro-esophageal reflux disease without esophagitis; Z80.51 Family history of malignant neoplasm of kidney; Z83.79 Family history of other diseases of the digestive system; Z84.1 Family history of disorders of kidney and ureter; Z82.49 Family history of ischemic heart disease and other diseases of the circulatory system; Z82.0 Family history of epilepsy and other diseases of the nervous system; Z79.82 Long term (current) use of aspirin; Z79.899 Other long term (current) drug therapy

== ENCOUNTER → 2018-04-28 | Outpatient (CLI) | payer OTHER ==
[~2018-04-28] MED LIST changes: +CYCL10TA6 PO
--- NOTE | 2018-04-28 16:05 | DIAGNOSTIC IMAGING REPORT ---
CT HEAD WITHOUT CONTRAST (CT) CLINICAL HISTORY: Confusion, left arm numbness. Possible stroke. COMPARISON STUDY: April 24, 2010 TECHNIQUE: Axial CT of the brain is performed from the vertex to the skull base. IV contrast was not administered for this examination. A dose lowering technique was utilized adhering to the principles of ALARA. CT DOSE: 638.56 mGycm FINDINGS: No intra or extra-axial mass lesions are visualized. There is no CT evidence of acute cortical infarction. There is no evidence of midline shift. There is no acute hemorrhage. No calvarial fractures are visualized. There is no evidence of pathologic ventricular dilatation. There is no evidence of acute sinusitis IMPRESSION: No acute intracranial findings Electronically signed by: Mitchell Ribeiro M.D. 04/28/2018 4:04 PM Dictated Date/Time: 04/28/2018 4:02 PM
== END | disposition home or self-care (01) ==
LOC: C.CTS 15:51
PROVIDERS: ATTEND Nurse Practitioner Family
DX: R41.0 Disorientation, unspecified (principal); R20.0 Anesthesia of skin